=== PATIENT | female | born 1950 | race Caucasian/White ===

== ENCOUNTER → 2016-12-13 | Outpatient (CLI) | payer BC ==
--- NOTE | 2016-12-13 10:55 | BD ---
EXAMINATION TYPE: MG DEXA axial skeleton. DATE OF EXAM: 12/13/2016 COMPARISON: 2014 CLINICAL HISTORY: osteoporosis Height: 5'4 Weight: 201 FRAX RISK QUESTIONS: Alcohol (3 or more units per day): no Family History (Parent hip fracture): yes Glucocorticoids (More than 3mos): no (Ex: prednisone, prednisolone, methylprednisolone, dexamethasone, and hydrocortisone). History of Fracture in Adulthood: no Secondary Osteoporosis: 1. Type 1 Diabetes: no 2. Hyperthyroidism: no 3. Menopause before 45: no 4. Malnutrition: no 5. Chronic liver disease: yes Rheumatoid Arthritis: no Current Tobacco Use: no RISK FACTORS HISTORY OF: Postmenopausal woman: MEDICATIONS: Thyroid Medications: Which medication: Synthroid How Long: < 10 years Additional Medications: liver chronic, calcium, blood pressure, cholesterol Additional History: thyroid radiated 39 years ago, no cancer EXAM MEASUREMENTS: Bone mineral densitometry was performed using the [employer]. Bone mineral density as measured about the Lumbar spine is: ----- L1-L4(G/cm2): 1.092 T Score Values are as follows: ----- L2: -0.8 ----- L3: 0.1 ----- L4: -1.1 ----- L1-L4: -0.7 Bone mineral density has: Increased 0.6 % since study of: 11/19/2014 Bone mineral density about the R hip (g/cm2): 0.689 Bone mineral density about the L hip (g/cm2): 0.694 T Score values are as follows: -----R Neck: -2.5 -----L Neck: -2.5 -----R Total: -2.1 -----L Total: -2.0 Bone mineral density has: Increased 0.9% since study of: 11/19/2014 IMPRESSION: Osteopenia (T Score between -2.5 and -1 as noted by T score values:L4, Charles Hips There is slightly increased risk of fracture and the patient may be considered for treatment. Re-Screen 2-5 years. NOTE: T-SCORE=SD OF THE YOUNG ADULT MEAN.
--- NOTE | 2016-12-14 08:23 | MM ---
Reason for exam: screening (asymptomatic). Last mammogram was performed 1 year and 1 month ago. History: Patient is postmenopausal. Benign excisional biopsy of the left breast, 1997. Took estrogen for 9 years beginning at age 46. Took progesterone for 9 years beginning at age 46. Taking other hormone for 21 years beginning at age 36. Physical Findings: A clinical breast exam by your physician is recommended on an annual basis and results should be correlated with mammographic findings. MG Screening Mammo w CAD Bilateral CC and MLO view(s) were taken. Prior study comparison: November 24, 2015, bilateral MG screening mammo w CAD. November 19, 2014, bilateral MG screening mammo w CAD. There are scattered fibroglandular densities. There is no discrete abnormality. No significant changes when compared with prior studies. ASSESSMENT: Negative, BI-RAD 1 RECOMMENDATION: Routine screening mammogram of both breasts in 1 year.
== END | disposition home or self-care (01) ==
LOC: RADMAMWWP 07:59
PROVIDERS: ATTEND Obstetrics & Gynecology
DX: Z12.31 Encounter for screening mammogram for malignant neoplasm of breast (principal); M85.80 Other specified disorders of bone density and structure, unspecified site
CPT/HCPCS: 77080; G0202

== ENCOUNTER → 2017-04-21 | Outpatient (CLI) | payer MEDICARE, BC ==
--- NOTE | 2017-04-21 09:29 | US ---
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 EXAM MEASUREMENTS: Liver Length: 15.8 cm Gallbladder Wall: Surgically absent cm CBD: 0.3 cm Right Kidney: 9.9x 3.9 x 4.1 cm Pancreas: Obscured by bowel gas Liver: small left nodule 1.5 x 1.7 x 1.3 cm seen before Gallbladder: Surgically absent Evidence for sonographic Mars's sign: Surgically absent CBD: wnl Right Kidney: wnl portal vein and hepatic artery patent and same direction IMPRESSION: 1. Stable hepatic hemangioma.
== END ==
LOC: RADUSWWP 08:10
PROVIDERS: ATTEND Internal Medicine Gastroenterology
DX: D18.09 Hemangioma of other sites (principal)
CPT/HCPCS: 76705

== ENCOUNTER → 2017-06-28 | Outpatient (CLI) | payer MEDICARE, BC ==
--- NOTE | 2017-06-28 09:47 | XR ---
EXAMINATION TYPE: XR chest 2V DATE OF EXAM: 06/28/2017 COMPARISON: 07/23/2013 TECHNIQUE: PA and lateral views submitted. HISTORY: Asthma FINDINGS: The lungs are clear and there is no pneumothorax, pleural effusion, or overt failure. Subsegmental l inear changes at both lung bases. Hypertrophic and degenerative change of the spine. Surgical clip in the abdomen. Hyperinflation suggests asthma or COPD.. IMPRESSION: 1. Basilar subsegmental consolidation. Atelectasis versus early infiltrate..
== END | disposition home or self-care (01) ==
LOC: RADXRMAIN 09:24
PROVIDERS: ATTEND Family Medicine
DX: J18.1 Lobar pneumonia, unspecified organism (principal); J45.909 Unspecified asthma, uncomplicated
CPT/HCPCS: 71046

== ENCOUNTER → 2017-07-25 | Outpatient (CLI) | payer MEDICARE, BC ==
--- NOTE | 2017-07-25 17:03 | CT ---
EXAMINATION TYPE: CT angio chest DATE OF EXAM: 07/25/2017 4:46 PM COMPARISON: NONE HISTORY: Chest and back pain. CT DLP: 365.9 mGycm Automated exposure control for dose reduction was used. CONTRAST: CTA scan of the thorax is performed with IV Contrast, patient injected with 100ml mL of Isovue 370, p ulmonary embolism protocol. There are 3-D post processed images.. FINDINGS: There is mild pulmonary emphysema. The lungs are clear of consolidation. There is no evidence of a pu lmonary mass. There is no pleural effusion. There is no pericardial effusion. There is minimal linear density at the lung bases. There is a small hiatal hernia. I see no filling defects in the pulmonary arteries. There is no evidence of thoracic aortic aneurysm or dissection. There is no mediastinal adenopathy. There are no hilar masses. The bony thorax is inta ct. IMPRESSION: MILD EMPHYSEMA. MILD SCARRING OR SUBSEGMENTAL ATELECTASIS AT THE LUNG BASES. NO EVIDENCE OF PULMONARY EMBOLISM.
== END | disposition home or self-care (01) ==
LOC: RADCTMAIN 15:49
PROVIDERS: ATTEND Internal Medicine
DX: J43.9 Emphysema, unspecified (principal); R07.1 Chest pain on breathing
CPT/HCPCS: 82565; 84520; 71275; 36415; Q9967

== ENCOUNTER 2018-01-19 11:21 | Emergency (ER) | payer MEDICARE, BC ==
[2018-01-19] MEDS ORDERED: HYDROmorphone 1 MG/ML 1 ML SYRINGE IVP STA (12:27)
[2018-01-19] MEDS ORDERED: ONDANSETRON 4 MG/2 ML VIAL IVP STA (12:27)
[2018-01-19] MEDS ORDERED: KETOROLAC 30 MG/ML 1 ML VIAL IVP STA (12:27)
[2018-01-19] MEDS ORDERED: SODIUM CHLORIDE 0.9% 1,000 ML IV ONE (12:27)
[2018-01-19 12:34] LABS: Basophils # (A) 0.1 k/uL (0-0.2); Basophils % (A) 1 %; Eosinophils # (A) 0.2 k/uL (0-0.7); Eosinophils % (A) 2 %; HCT 45.5 % (34.0-46.0); HGB 15.1 gm/dL (11.4-16.0); Lymphocytes # (A) 0.8 k/uL (1.0-4.8); Lymphocytes % (A) 11 %; MCH 29.4 pg (25.0-35.0); MCHC 33.2 g/dL (31.0-37.0); MCV 88.5 fL (80.0-100.0); Mean Platelet Volume 7.7; Monocytes # (A) 0.4 k/uL (0-1.0); Monocytes % (A) 5 %; Neutrophils # (A) 5.7 k/uL (1.3-7.7); Neutrophils % (A) 78 %; Platelet Count 234 k/uL (150-450); RBC 5.14 m/uL (3.80-5.40); RDW 14.1 % (11.5-15.5); WBC 7.3 k/uL (3.8-10.6)
--- NOTE | 2018-01-19 12:36 | ED ---
General Adult HPI - General Chief complaint: Abdominal Pain Stated complaint: Abdominal pin Time Seen by Provider: 01/19/18 12:00 Source: patient, RN notes reviewed Mode of arrival: ambulatory Limitations: no limitations - History of Present Illness Initial comments: This is a 67-year-old female presents emergency Department complaining of left- sided flank pain. Patient states she does have history of kidney stones but has been many years. Patient states today about 2 hours prior to arrival she started having significant left-sided flank pain. Patient became nauseated and vomited twice. Patient states she has not had any diarrhea but she has had multiple bowel movements since this began. Patient denies any palpable tenderness. Patient denies any dysuria hematuria urinary frequency. Patient denies any fever chills. Patient denies any chest pain difficulty breathing or shortness of breath. - Related Data Home Medications Medication Instructions Recorded Confirmed Ascorbic Acid [Vitamin C] 500 mg PO DAILY 12/16/14 01/19/18 Aspirin 81 mg PO DAILY 12/16/14 01/19/18 Atorvastatin [Lipitor] 40 mg PO HS 12/16/14 01/19/18 Calcium Carbonate [Calcium] 600 mg PO DAILY 12/16/14 01/19/18 Cholecalciferol [Vitamin D3] 1,000 unit PO DAILY 12/16/14 01/19/18 Glucosamine/Chondr Lin A Sod [Osteo 1 tab PO DAILY 12/16/14 01/19/18 Bi-Flex Caplet] Levothyroxine Sodium [Synthroid] 175 mcg PO QAM 12/16/14 01/19/18 Ursodiol 300 mg PO TID 12/16/14 01/19/18 Venlafaxine HCl [Venlafaxine HCl 75 mg PO QAM 12/16/14 01/19/18 ER] Verapamil HCl [Verapamil ER] 120 mg PO QAM 12/16/14 01/19/18 Vitamin E 1,000 unit PO DAILY 12/16/14 01/19/18 Cetirizine HCl [Zyrtec] 10 mg PO DAILY 01/19/18 01/19/18 Doxycycline Monohydrate 100 mg PO BID 01/19/18 01/19/18 [Vibramycin] Fluticasone Nasal [place] [Flonase 1 spray EA NOSTRIL DAILY 01/19/18 01/19/18 Nasal [place]] Previous Rx's Medication Instructions Recorded Hydrocodone/Acetaminophen [Wyckoff 1 each PO Q4HR PRN #14 tab 01/19/18 5-325] Ketorolac [Toradol] 10 mg PO Q6HR #15 tab 01/19/18 Allergies Allergy/AdvReac Type Severity Reaction Status Date / Time pseudoephedrine sulfate Allergy Rapid Verified 01/19/18 13:27 [From Claritin-D] Heart Rate Review of Systems ROS Statement: Those systems with pertinent positive or pertinent negative responses have been documented in the HPI. ROS Other: All systems not noted in ROS Statement are negative. Past Medical History Past Medical History: Liver Disease, Thyroid Disorder Additional Past Medical History / Comment(s): FAST HEART RATE? LIVER DISEASE CAUSED BY THYROID? History of Any Multi-Drug Resistant Organisms: None Reported Past Surgical History: Cardiac Ablation, Cholecystectomy, Hysterectomy, Tonsillectomy, Tubal Ligation Additional Past Surgical History / Comment(s): D&C with hysteroscopy Past Anesthesia/Blood Transfusion Reactions: No Reported Reaction Past Psychological History: Anxiety Smoking Status: Former smoker Past Alcohol Use History: None Reported Past Drug Use History: None Reported - Past Family History Father Family Medical History: Hypertension Mother Family Medical History: Hypertension General Exam - General Exam Comments Initial Comments: GENERAL: Patient is well-developed and well-nourished. Patient is nontoxic and well- hydrated and is in moderate distress. ENT: Neck is soft and supple. No significant lymphadenopathy is noted. Oropharynx is clear. Moist mucous membranes. Neck has full range of motion without eliciting any pain. EYES: The sclera were anicteric and conjunctiva were pink and moist. Extraocular movements were intact and pupils were equal round and reactive to light. Eyelids were unremarkable. PULMONARY: Unlabored respirations. Good breath sounds bilaterally. No audible rales rhonchi or wheezing was noted. CARDIOVASCULAR: There is a regular rate and rhythm without any murmurs gallops or rubs. ABDOMEN: Soft and nontender with normal bowel sounds. No palpable organomegaly was noted. There is no palpable pulsatile mass. SKIN: Skin is clear with no lesions or rashes and otherwise unremarkable. NEUROLOGIC: Patient is alert and oriented x3. Cranial nerves II through XII are grossly intact. Motor and sensory are also intact. Normal speech, volume and content. Symmetrical smile. MUSCULOSKELETAL: Normal extremities with adequate strength and full range of motion. No lower extremity swelling or edema. No calf tenderness. LYMPHATICS: No significant lymphadenopathy is noted PSYCHIATRIC: Normal psychiatric evaluation. Limitations: no limitations Course Vital Signs 01/19/18 11:55 Temperature 98.2 F Pulse Rate 71 Respiratory 22 Rate Blood Pressure 145/74 O2 Sat by Pulse 100 Oximetry Medical Decision Making - Medical Decision Making Computed tomography scan shows a 3 mm stone at the distal ureter at the UVJ. Patient has hydronephrosis. I went back in to see the patient after she had received her pain medications she was pain-free at this time. - Lab Data Result diagrams: 01/19/18 12:14 01/19/18 12:14 Lab Results 01/19/18 01/19/18 Range/Units 12:14 12:14 WBC 7.3 (3.8-10.6) k/uL RBC 5.14 (3.80-5.40) m/uL Hgb 15.1 (11.4-16.0) gm/dL Hct 45.5 (34.0-46.0) % MCV 88.5 (80.0-100.0) fL MCH 29.4 (25.0-35.0) pg MCHC 33.2 (31.0-37.0) g/dL RDW 14.1 (11.5-15.5) % Plt Count 234 (150-450) k/uL Neutrophils % 78 % Lymphocytes % 11 % Monocytes % 5 % Eosinophils % 2 % Basophils % 1 % Neutrophils # 5.7 (1.3-7.7) k/uL Lymphocytes # 0.8 L (1.0-4.8) k/uL Monocytes # 0.4 (0-1.0) k/uL Eosinophils # 0.2 (0-0.7) k/uL Basophils # 0.1 (0-0.2) k/uL Sodium 143 (137-145) mmol/L Potassium 4.4 (3.5-5.1) mmol/L Chloride 109 H (98-107) mmol/L Carbon Dioxide 25 (22-30) mmol/L Anion Gap 9 mmol/L BUN 25 H (7-17) mg/dL Creatinine 0.80 (0.52-1.04) mg/dL Est GFR (CKD-EPI)AfAm 90 (>60 ml/min/1.73 sqM) Est GFR (CKD-EPI)NonAf 78 (>60 ml/min/1.73 sqM) Glucose 111 H (74-99) mg/dL Calcium 9.5 (8.4-10.2) mg/dL Total Bilirubin 0.7 (0.2-1.3) mg/dL AST 55 H (14-36) U/L ALT 32 (9-52) U/L Alkaline Phosphatase 132 H (38-126) U/L Total Protein 8.4 H (6.3-8.2) g/dL Albumin 4.0 (3.5-5.0) g/dL Amylase 74 (30-110) U/L Lipase 128 (23-300) U/L Disposition Clinical Impression: Kidney stone Disposition: HOME SELF-CARE Condition: Good Instructions: Kidney Stones (ED) Prescriptions: Hydrocodone/Acetaminophen [Wyckoff 5-325] 1 each PO Q4HR PRN #14 tab PRN Reason: Pain Ketorolac [Toradol] 10 mg PO Q6HR #15 tab Is patient prescribed a controlled substance at d/c from ED?: Yes When asked, does pt state using other controlled substances?: No If prescribed controlled substance>3 days was MAPS reviewed?: Prescribed <3 Days If opioid is for acute pain is fill amount 7 days or less?: Yes If Rx opioid, was Start Talking consent form obtained?: Yes Referrals: Chuck Dominguez MD [Primary Care Provider] - 1-2 days Time of Disposition: 14:09
[2018-01-19 12:50] LABS: Calcium 9.5 mg/dL (8.4-10.2); Potassium 4.4 mmol/L (3.5-5.1); Total Bilirubin 0.7 mg/dL (0.2-1.3); Total Protein 8.4 g/dL (6.3-8.2)
--- NOTE | 2018-01-19 13:23 | CT ---
EXAMINATION TYPE: CT abdomen pelvis wo con DATE OF EXAM: 01/19/2018 COMPARISON: 07/09/2009 HISTORY: Lt flank pain CT DLP: 967 mGycm Examination of the solid and hollow viscera is limited given the lack of contrast. FINDINGS: LUNG BASES: No evidence for nodule. No evidence for infiltrate. LIVER/GB: Micronodular hepatic appearances are compatible with cirrhotic liver disease. Cholecystecto my clips are in place. No space-occupying hepatic lesion. PANCREAS: No pancreatic mass identified. No inflammatory process seen. SPLEEN: No evidence for splenomegaly. No intrasplenic lesions seen. ADRENALS: No adrenal nodules identified. No evidence for thickening. KIDNEYS: 3 mm left UVJ calculus resulting in mild left-sided hydroureteronephrosis. Additional nonobs tructing calculi upper and lower pole right kidney. No renal masses seen with certainty. BOWEL: Small hiatal hernia noted. Appendix has a normal appearance. No evidence of bowel obstruction. No inflammatory process. Lymph nodes: No evidence for adenopathy greater than 1 cm. Abdominal aorta: Atheromatous changes seen. No evidence for aneurysm. Genital organs: No significant abnormality. Other: No significant abnormality. IMPRESSION: 1. 3 mm left UVJ calculus resulting in mild left-sided hydroureteronephrosis. 2. Cirrhotic liver disease.
--- NOTE | 2018-01-19 13:58 | XR ---
EXAMINATION TYPE: XR KUB DATE OF EXAM: 01/19/2018 COMPARISON: NONE HISTORY: Pain TECHNIQUE: One view abdominal series FINDINGS: The osseous structures are intact. The bowel gas pattern is nonspecific. Subsegmental changes at bot h lung bases. The heart is enlarged. Hypertrophic and degenerative change of the spine. Surgical clip s in the right upper quadrant. 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 Retained fecal debris throughout the colon. Nonspecific calcifications in the right hemipelvis appears outside of the ureter on the recent CT scan. IMPRESSION: 1. Calcification seen by CT scan within the left hemipelvis not as well identified by standard x-ray.
[2018-01-19 14:40] VITALS: BP 165/70; PULSE 88; RESP 18; TEMP 97.9
== END 2018-01-19 14:35 | disposition home or self-care (01) ==
LOC: EC 11:21
DX: N13.2 Hydronephrosis with renal and ureteral calculous obstruction (principal); E07.9 Disorder of thyroid, unspecified; F41.9 Anxiety disorder, unspecified; Z90.49 Acquired absence of other specified parts of digestive tract; Z90.710 Acquired absence of both cervix and uterus; Z98.51 Tubal ligation status; Z87.891 Personal history of nicotine dependence; Z79.82 Long term (current) use of aspirin; Z79.51 Long term (current) use of inhaled steroids; Z79.899 Other long term (current) drug therapy; Z88.8 Allergy status to other drugs, medicaments and biological substances
CPT/HCPCS: 36415; 74018; 74176; 80053; 82150; 83690; 85025; 96361; 96374; 96375; 99284

== ENCOUNTER → 2018-01-26 | Outpatient (CLI) | payer MEDICARE, BC ==
--- NOTE | 2018-01-30 09:43 | MM ---
Reason for exam: screening (asymptomatic). Last mammogram was performed 1 year and 1 month ago. History: Patient is postmenopausal. Benign excisional biopsy of the left breast, 1997. Took estrogen for 9 years beginning at age 46. Took progesterone for 9 years beginning at age 46. Taking other hormone for 21 years beginning at age 36. Physical Findings: A clinical breast exam by your physician is recommended on an annual basis and results should be correlated with mammographic findings. MG 3D Screening Mammo W/Cad Bilateral CC and MLO view(s) were taken. Prior study comparison: December 13, 2016, bilateral MG screening mammo w CAD. November 24, 2015, bilateral MG screening mammo w CAD. There are scattered fibroglandular densities. No significant changes when compared with prior studies. ASSESSMENT: Benign, BI-RAD 2 RECOMMENDATION: Routine screening mammogram of both breasts in 1 year.
== END | disposition home or self-care (01) ==
LOC: RADMAMWWP 12:16
PROVIDERS: ATTEND Family Medicine
DX: Z12.31 Encounter for screening mammogram for malignant neoplasm of breast (principal)
CPT/HCPCS: 77063; 77067

== ENCOUNTER → 2018-04-12 | Outpatient (CLI) | payer MEDICARE, BC ==
--- NOTE | 2018-04-12 11:54 | US ---
EXAMINATION TYPE: US liver DATE OF EXAM: 04/12/2018 COMPARISON: 04/21/2017 CLINICAL HISTORY: Primary biliary cirrhosis K74.3. Cirrhosis EXAM MEASUREMENTS: Liver Length: 16.8 cm. Normal less than 15.5 cm. Gallbladder Wall: Surgically absent CBD: 0.5 cm Right Kidney: 10.4 x 5.8 x 4.1 cm Pancreas: Tail obscured by overlying bowel gas Liver: heterogeneous . Previous hypoechoic lesion not identified on the current examination. Gallbladder: Surgically absent Evidence for sonographic Mars's sign: no CBD: wnl Right Kidney: No evidence of hydronephrosis IMPRESSION: 1. No suspicious interval change. Mild hepatomegaly is present at 16.8 cm.
== END | disposition home or self-care (01) ==
LOC: RADUSWWP 08:42
PROVIDERS: ATTEND Internal Medicine Gastroenterology
DX: R16.0 Hepatomegaly, not elsewhere classified (principal)
CPT/HCPCS: 76705

== ENCOUNTER 2018-05-06 19:35 | Emergency (ER) | payer MEDICARE, BC ==
[2018-05-06 19:44] VITALS: RESP 18
[2018-05-06] MEDS ORDERED: MORPHINE SULFATE 2 MG/ML SYRINGE IVP STA (20:31)
[2018-05-06] MEDS ORDERED: SODIUM CHLORIDE 0.9% 1,000 ML IV STA (20:31)
[2018-05-06] MEDS ORDERED: ONDANSETRON 4 MG/2 ML VIAL IVP STA (20:31)
[2018-05-06] MEDS ORDERED: KETOROLAC 30 MG/ML 1 ML VIAL IVP STA (20:31)
--- NOTE | 2018-05-06 20:45 | ED ---
Abdominal Pain HPI - General Source: patient, family Mode of arrival: ambulatory Limitations: no limitations <Karen Wharton - Last Filed: 05/07/18 02:34> <Jammie Sullivan - Last Filed: 05/09/18 09:11> - General Chief Complaint: Abdominal Pain Stated Complaint: Flank pain Time Seen by Provider: 05/06/18 20:10 - History of Present Illness Initial Comments: 68 year-old female patient presents to the emergency department today for evaluation of right flank pain that radiates into the right upper quadrant abdomen. Patient states pain has been present for the last 3 days. States that she has had history of kidney stones in the pain kind of feels similar. States that she did have some leftover medication including Penfield and Toradol which she has been taking but the pain returned to soon as the medication wears off. States that she has had some burning with urination, increased frequency, but voiding small amounts over the last 3 days as well. She is also reporting hematuria. States that she has been nauseated but has not had any vomiting. Denies any chest pain or shortness of breath. Patient denies any recent rash, diarrhea, constipation, back pain, numbness, tingling, dizziness, weakness, headache, visual changes, or any other complaints. (Karen Wharton) - Related Data Home Medications Medication Instructions Recorded Confirmed Ascorbic Acid [Vitamin C] 500 mg PO DAILY 12/16/14 05/06/18 Aspirin 81 mg PO DAILY 12/16/14 05/06/18 Atorvastatin [Lipitor] 40 mg PO HS 12/16/14 05/06/18 Calcium Carbonate [Calcium] 600 mg PO DAILY 12/16/14 05/06/18 Cholecalciferol [Vitamin D3] 1,000 unit PO DAILY 12/16/14 05/06/18 Glucosamine/Chondr Lin A Sod [Osteo 1 tab PO DAILY 12/16/14 05/06/18 Bi-Flex Caplet] Levothyroxine Sodium [Synthroid] 175 mcg PO QAM 12/16/14 05/06/18 Ursodiol 300 mg PO TID 12/16/14 05/06/18 Venlafaxine HCl [Venlafaxine HCl 75 mg PO QAM 12/16/14 05/06/18 ER] Verapamil HCl [Verapamil ER] 120 mg PO QAM 12/16/14 05/06/18 Vitamin E 1,000 unit PO DAILY 12/16/14 05/06/18 Cetirizine HCl [Zyrtec] 10 mg PO DAILY 01/19/18 05/06/18 Doxycycline [Vibramycin] 100 mg PO BID 01/19/18 05/06/18 Fluticasone Nasal [place] [Flonase 1 spray EA NOSTRIL DAILY 01/19/18 05/06/18 Nasal [place]] Previous Rx's Medication Instructions Recorded Hydrocodone/Acetaminophen [Penfield 1 each PO Q4HR PRN #14 tab 01/19/18 5-325] Ketorolac [Toradol] 10 mg PO Q6HR #15 tab 01/19/18 Tamsulosin HCl [Flomax] 0.4 mg PO DAILY #7 cap 05/06/18 Allergies Allergy/AdvReac Type Severity Reaction Status Date / Time pseudoephedrine sulfate Allergy Rapid Verified 01/19/18 13:27 [From Claritin-D] Heart Rate Review of Systems ROS Other: All systems not noted in ROS Statement are negative. <Karen Wharton - Last Filed: 05/07/18 02:34> ROS Other: All systems not noted in ROS Statement are negative. <Jammie Sullivan - Last Filed: 05/09/18 09:11> ROS Statement: Those systems with pertinent positive or pertinent negative responses have been documented in the HPI. Past Medical History Past Medical History: Liver Disease, Thyroid Disorder Additional Past Medical History / Comment(s): FAST HEART RATE? LIVER DISEASE CAUSED BY THYROID? History of Any Multi-Drug Resistant Organisms: None Reported Past Surgical History: Cardiac Ablation, Cholecystectomy, Hysterectomy, Tonsillectomy, Tubal Ligation Additional Past Surgical History / Comment(s): D&C with hysteroscopy Past Anesthesia/Blood Transfusion Reactions: No Reported Reaction Past Psychological History: Anxiety Smoking Status: Former smoker Past Alcohol Use History: None Reported Past Drug Use History: None Reported - Past Family History Father Family Medical History: Hypertension Mother Family Medical History: Hypertension <Karen Wharton - Last Filed: 05/07/18 02:34> General Exam Limitations: no limitations General appearance: alert, in no apparent distress, other (Social well-developed , well-nourished adult female patient in no acute distress. Vital signs upon presentation are temperature 98.2F, pulse 80, respirations 18, blood pressure 170/85, pulse ox 96% on room air.) Eye exam: Present: normal appearance, PERRL, EOMI. Absent: scleral icterus, conjunctival injection, periorbital swelling ENT exam: Present: normal exam, normal oropharynx, mucous membranes moist Respiratory exam: Present: normal lung sounds bilaterally. Absent: respiratory distress, wheezes, rales, rhonchi, stridor Cardiovascular Exam: Present: regular rate, normal rhythm, normal heart sounds. Absent: systolic murmur, diastolic murmur, rubs, gallop, clicks GI/Abdominal exam: Present: soft, tenderness (Midepigastric and right upper quadrant tenderness), normal bowel sounds. Absent: distended, guarding, rebound , rigid Back exam: Present: normal inspection, CVA tenderness (R). Absent: CVA tenderness (L) Neurological exam: Present: alert, oriented X3, CN II-XII intact Psychiatric exam: Present: normal affect, normal mood Skin exam: Present: warm, dry, intact, normal color. Absent: rash <Karen Wharton M - Last Filed: 05/07/18 02:34> Vital Signs 05/06/18 05/06/18 19:40 22:22 Temperature 98.2 F 98.0 F Pulse Rate 80 69 Respiratory 18 18 Rate Blood Pressure 170/85 145/85 O2 Sat by Pulse 96 96 Oximetry Medical Decision Making - Lab Data Result diagrams: 05/06/18 20:40 05/06/18 20:40 - Radiology Data Radiology results: report reviewed, image reviewed <Karen Wharton - Last Filed: 05/07/18 02:34> - Lab Data Result diagrams: 05/06/18 20:40 05/06/18 20:40 <Jammie Sullivan - Last Filed: 05/09/18 09:11> - Medical Decision Making 68 year-old female patient presents to the emergency department today for evaluation of right flank pain. Patient does have history of kidney stones. Physical examination did reveal right CVA tenderness. Labs reviewed and did reveal elevated BUN at 30 with normal creatinine. Urinalysis showed a cloudy appearance with trace blood, 16 red blood cells, and rare mucous. No evidence of infection. Patient symptoms are consistent with kidney stone. Given a positive CT scanning in December for kidney stone we will not repeat this. She 'll be discharged home at this time with Flomax prescription. She does have Penfield and Toradol at home for pain control. She is instructed to increase fluids. She is instructed to follow-up with urologist for further evaluation. Return parameters were discussed in detail. She verbalizes understanding and agrees this plan. (Karen Wharton) I was available for consultation in the emergency department. The history and physical exam were done by the midlevel provider. I was consulted for this patient's care. I reviewed the case with the midlevel provider and based on their presentation of the patient, I agree with the assessment, medical decision making and plan of care as documented. (Jammie Sullivan) - Lab Data Lab Results 05/06/18 05/06/18 05/06/18 Range/Units 20:40 20:40 20:40 WBC 6.2 (3.8-10.6) k/uL RBC 4.84 (3.80-5.40) m/uL Hgb 14.2 (11.4-16.0) gm/dL Hct 43.0 (34.0-46.0) % MCV 88.8 (80.0-100.0) fL MCH 29.4 (25.0-35.0) pg MCHC 33.1 (31.0-37.0) g/dL RDW 13.4 (11.5-15.5) % Plt Count 232 (150-450) k/uL Neutrophils % 58 % Lymphocytes % 27 % Monocytes % 7 % Eosinophils % 5 % Basophils % 1 % Neutrophils # 3.6 (1.3-7.7) k/uL Lymphocytes # 1.7 (1.0-4.8) k/uL Monocytes # 0.4 (0-1.0) k/uL Eosinophils # 0.3 (0-0.7) k/uL Basophils # 0.1 (0-0.2) k/uL Sodium 141 (137-145) mmol/L Potassium 4.3 (3.5-5.1) mmol/L Chloride 109 H (98-107) mmol/L Carbon Dioxide 23 (22-30) mmol/L Anion Gap 9 mmol/L BUN 30 H (7-17) mg/dL Creatinine 0.73 (0.52-1.04) mg/dL Est GFR (CKD-EPI)AfAm >90 (>60 ml/min/1.73 sqM) Est GFR (CKD-EPI)NonAf 86 (>60 ml/min/1.73 sqM) Glucose 91 (74-99) mg/dL Calcium 10.1 (8.4-10.2) mg/dL Total Bilirubin 0.9 (0.2-1.3) mg/dL AST 56 H (14-36) U/L ALT 38 (9-52) U/L Alkaline Phosphatase 135 H (38-126) U/L Troponin I <0.012 (0.000-0.034) ng/mL Total Protein 8.4 H (6.3-8.2) g/dL Albumin 4.2 (3.5-5.0) g/dL Amylase 66 (30-110) U/L Lipase 103 (23-300) U/L Urine Color Urine Appearance (Clear) Urine pH (5.0-8.0) Ur Specific [place] (1.001-1.035) Urine Protein (Negative) Urine Glucose (UA) (Negative) Urine Ketones (Negative) Urine Blood (Negative) Urine Nitrite (Negative) Urine Bilirubin (Negative) Urine Urobilinogen (<2.0) mg/dL Ur Leukocyte Esterase (Negative) Urine RBC (0-5) /hpf Urine WBC (0-5) /hpf Urine Mucus (None) /hpf 05/06/18 Range/Units 20:40 WBC (3.8-10.6) k/uL RBC (3.80-5.40) m/uL Hgb (11.4-16.0) gm/dL Hct (34.0-46.0) % MCV (80.0-100.0) fL MCH (25.0-35.0) pg MCHC (31.0-37.0) g/dL RDW (11.5-15.5) % Plt Count (150-450) k/uL Neutrophils % % Lymphocytes % % Monocytes % % Eosinophils % % Basophils % % Neutrophils # (1.3-7.7) k/uL Lymphocytes # (1.0-4.8) k/uL Monocytes # (0-1.0) k/uL Eosinophils # (0-0.7) k/uL Basophils # (0-0.2) k/uL Sodium (137-145) mmol/L Potassium (3.5-5.1) mmol/L Chloride (98-107) mmol/L Carbon Dioxide (22-30) mmol/L Anion Gap mmol/L BUN (7-17) mg/dL Creatinine (0.52-1.04) mg/dL Est GFR (CKD-EPI)AfAm (>60 ml/min/1.73 sqM) Est GFR (CKD-EPI)NonAf (>60 ml/min/1.73 sqM) Glucose (74-99) mg/dL Calcium (8.4-10.2) mg/dL Total Bilirubin (0.2-1.3) mg/dL AST (14-36) U/L ALT (9-52) U/L Alkaline Phosphatase (38-126) U/L Troponin I (0.000-0.034) ng/mL Total Protein (6.3-8.2) g/dL Albumin (3.5-5.0) g/dL Amylase (30-110) U/L Lipase (23-300) U/L Urine Color Yellow Urine Appearance Cloudy H (Clear) Urine pH 5.5 (5.0-8.0) Ur Specific [place] 1.019 (1.001-1.035) Urine Protein Negative (Negative) Urine Glucose (UA) Negative (Negative) Urine Ketones Negative (Negative) Urine Blood Trace H (Negative) Urine Nitrite Negative (Negative) Urine Bilirubin Negative (Negative) Urine Urobilinogen <2.0 (<2.0) mg/dL Ur Leukocyte Esterase Negative (Negative) Urine RBC 16 H (0-5) /hpf Urine WBC 2 (0-5) /hpf Urine Mucus Rare H (None) /hpf - Radiology Data 2 views of the abdomen are obtained. Report was reviewed in its entirety. Impression by Dr. Reyna shows no sign of intestinal obstruction or pneumoperitoneum. Fecal pattern is normal. There are clips from cholecystectomy. There is mild atelectasis at the right lung bases. No pathologic calcifications over the kidneys. Impression by Dr. Reyna shows nonacute abdomen. Atelectasis at the right lung bases compared to old exam ( Karen Wharton) Disposition Is patient prescribed a controlled substance at d/c from ED?: No Time of Disposition: :07 <Karen Wharton M - Last Filed: 05/07/18 02:34> <Jammie Sullivan P - Last Filed: 05/09/18 09:11> Clinical Impression: Kidney stone on right side Disposition: HOME SELF-CARE Condition: Good Instructions: Kidney Stones (ED) Additional Instructions: Increase fluids. Take medications as directed. Follow-up with the primary care physician for recheck in 1-2 days. Follow up with urology for recheck as soon as possible. Return immediately for any new, worsening, or concerning symptoms Prescriptions: Tamsulosin HCl [Flomax] 0.4 mg PO DAILY #7 cap Referrals: Chuck Dominguez MD [Primary Care Provider] - 1-2 days Mark Aranda MD [STAFF PHYSICIAN] - 1-2 days
[2018-05-06 20:58] LABS: Basophils # (A) 0.1 k/uL (0-0.2); Basophils % (A) 1 %; Eosinophils # (A) 0.3 k/uL (0-0.7); Eosinophils % (A) 5 %; HGB 14.2 gm/dL (11.4-16.0); Lymphocytes # (A) 1.7 k/uL (1.0-4.8); Lymphocytes % (A) 27 %; MCH 29.4 pg (25.0-35.0); MCHC 33.1 g/dL (31.0-37.0); MCV 88.8 fL (80.0-100.0); Monocytes # (A) 0.4 k/uL (0-1.0); Monocytes % (A) 7 %; Neutrophils # (A) 3.6 k/uL (1.3-7.7); Neutrophils % (A) 58 %; Platelet Count 232 k/uL (150-450); RBC 4.84 m/uL (3.80-5.40); RDW 13.4 % (11.5-15.5); WBC 6.2 k/uL (3.8-10.6)
[2018-05-06 21:04] LABS: Appearance,Urine Cloudy (Clear); Bilirubin,Urine Negative (Negative); Blood,Urine Trace (Negative); Color,Urine Yellow; Glucose,Urine (UA) Negative (Negative); Ketones,Urine Negative (Negative); Leukocyte Esterase,Urine Negative (Negative); Mucus,Urine Rare /hpf; Nitrite,Urine Negative (Negative); PH, Urine 5.5 (5.0-8.0); Protein,Urine Negative (Negative); RBC,Urine 16 /hpf (0-5); Specific Gravity,Urine 1.019 (1.001-1.035); Urobilinogen,Urine <2.0 mg/dL (<2.0); WBC,Urine 2 /hpf (0-5)
[2018-05-06 21:06] LABS: ALT 38 U/L (9-52); AST 56 U/L (14-36); Albumin 4.2 g/dL (3.5-5.0); Alkaline Phosphatase 135 U/L (38-126); Amylase 66 U/L (30-110); Anion Gap 9 mmol/L; Blood Urea Nitrogen 30 mg/dL (7-17); Calcium 10.1 mg/dL (8.4-10.2); Carbon Dioxide 23 mmol/L (22-30); Chloride 109 mmol/L (98-107); Glucose 91 mg/dL (74-99); Lipase 103 U/L (23-300); Potassium 4.3 mmol/L (3.5-5.1); Sodium 141 mmol/L (137-145); Total Bilirubin 0.9 mg/dL (0.2-1.3); Total Protein 8.4 g/dL (6.3-8.2)
[2018-05-06] MEDS ORDERED: TAMSULOSIN 0.4 MG CAP.ER.24H PO STA (21:44)
--- NOTE | 2018-05-06 22:01 | XR ---
EXAMINATION TYPE: XR KUB DATE OF EXAM: 05/06/2018 COMPARISON: 01/19/2018 HISTORY: Flank pain TECHNIQUE: 2 views upright. There is no sign of intestinal obstruction or pneumoperitoneum. Fecal pattern is normal. There are cl ips from cholecystectomy. There is mild atelectasis at the right lung base. There are no pathologic c alcifications over the kidneys. : IMPRESSION: Nonacute abdomen. Atelectasis at the right lung base compared to old exam.
[2018-05-06 22:23] VITALS: BP 145/85; PULSE 69; TEMP 98
== END 2018-05-06 22:22 | disposition home or self-care (01) ==
LOC: EC 19:35
DX: N20.0 Calculus of kidney (principal); E07.9 Disorder of thyroid, unspecified; F41.9 Anxiety disorder, unspecified; Z90.49 Acquired absence of other specified parts of digestive tract; Z90.710 Acquired absence of both cervix and uterus; Z98.51 Tubal ligation status; Z87.891 Personal history of nicotine dependence; Z87.442 Personal history of urinary calculi; Z79.82 Long term (current) use of aspirin; Z79.899 Other long term (current) drug therapy; Z88.8 Allergy status to other drugs, medicaments and biological substances
CPT/HCPCS: 36415; 80053; 82150; 83690; 84484; 85025; 81001; 74018; 99284; 96374; 96375 ×2; 96361 ×2; J2405; J1885; J2270

== ENCOUNTER → 2018-05-12 | Outpatient (CLI) | payer MEDICARE, BC ==
--- NOTE | 2018-05-12 14:24 | XR ---
Abdomen HISTORY: History of kidney stones Frontal view of the abdomen on 2 images correlated to prior exam dated 05/06/2018, CT 01/19/2018 Calcification overlying the lower pole the right kidney measures 18 mm. Probable phleboliths in the p maggi. 1.5 cm splenic artery aneurysm left upper quadrant again noted with calcification. Retained fe homero debris present throughout the distribution of the colon. Overlying bowel gas may obscure detail. Partial sacralization of L5 on the right again noted. IMPRESSION: Right-sided nephrolithiasis. Indeterminate calcifications in the pelvis may be vascular.
== END | disposition home or self-care (01) ==
LOC: RADXRMAIN 11:24
PROVIDERS: ATTEND Urology
DX: N20.0 Calculus of kidney (principal)
CPT/HCPCS: 74018

== ENCOUNTER → 2019-01-29 | Outpatient (CLI) | payer MEDICARE, BC ==
--- NOTE | 2019-01-29 13:23 | BD ---
EXAMINATION TYPE: Axial Bone Density DATE OF EXAM: 01/29/2019 COMPARISON: 2017 CLINICAL HISTORY: M [age] Height: 5 FT 3 1/2 IN Weight: 204 FRAX RISK QUESTIONS: Family History (Parent hip fracture): YES Secondary Osteoporosis: 5. Chronic liver disease: STAGE 4 NOT SURE IF IT IS CANCER RISK FACTORS HISTORY OF: Family History of Osteoporosis: Active: Postmenopausal woman: LATE 5O 'S Take estrogen and/or progesterone medications: NONE NOW TOOK HRT FROM 46 -55 MEDICATIONS: Prednisone or other steroids: INHALER FOR COPD NOT SURE IF IT IS A STEROID How Long: APPROX 4 YEARS Thyroid Medications: YES Which medication: SYNTHROID How Lon PLUS YEARS Additional Medications: URSODIOL, VERAPAMIL, ATORVASTATIN, SYNTHROID, EFFEXOR, ALENDRONATE FOR BONES FOR LAST SIX MONTHS Additional History: RADIATION TO THYROID EXAM MEASUREMENTS: Bone mineral densitometry was performed using the [employer] System. Bone mineral density as measured about the Lumbar spine is: ----- L1-L4(G/cm2): 1.181 T Score Values are as follows: ----- L2: 0.7 ----- L3: 0.6 ----- L4: -0.1 ----- L1-L4: 0.0 Bone mineral density has: INCREASED 10.4 % since study of: 2017 Bone mineral density about the R hip (g/cm2): 0.701 Bone mineral density about the L hip (g/cm2): 0.689 T Score values are as follows: -----R Neck: -2.4 -----L Neck: -2.5 -----R Total: -2.0 -----L Total: -2.2 Bone mineral density has: DECREASED -0.9 % since study of: 2017 IMPRESSION: Osteoporosis (T Score less than -2.5). There is increased fracture risk and therapy is usually indicated based on age. Re-Screen 1-2 years. NOTE: T-SCORE=SD OF THE YOUNG ADULT MEAN.
--- NOTE | 2019-01-30 09:14 | MM ---
Reason for exam: screening (asymptomatic). Last mammogram was performed 1 year ago. History: Patient is postmenopausal. Benign excisional biopsy of the left breast, 1997. Took estrogen for 9 years beginning at age 46. Took progesterone for 9 years beginning at age 46. Taking other hormone for 21 years beginning at age 36. Physical Findings: A clinical breast exam by your physician is recommended on an annual basis and results should be correlated with mammographic findings. MG Screening Mammo w CAD Bilateral CC and MLO view(s) were taken. Prior study comparison: January 26, 2018, bilateral MG 3d screening mammo w/cad. December 13, 2016, bilateral MG screening mammo w CAD. There are scattered fibroglandular densities. There is no discrete abnormality. No significant changes when compared with prior studies. ASSESSMENT: Negative, BI-RAD 1 RECOMMENDATION: Routine screening mammogram of both breasts in 1 year.
== END | disposition home or self-care (01) ==
LOC: RADMAMWWP 08:46
PROVIDERS: ATTEND Obstetrics & Gynecology
DX: Z12.31 Encounter for screening mammogram for malignant neoplasm of breast (principal); M81.0 Age-related osteoporosis without current pathological fracture
CPT/HCPCS: 77067; 77080

== ENCOUNTER → 2019-06-14 | Outpatient (CLI) | payer MEDICARE, BC ==
--- NOTE | 2019-06-14 08:59 | US ---
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 Biliary cirrhosis. EXAM MEASUREMENTS: Liver Length: 17.4 cm Gallbladder Wall: Surgically absent cm CBD: .6 cm Right Kidney: 8.9 x 4.3 x 5.5 cm Pancreas: Tail obscured by overlying bowel gas Liver: Very mildly coarsened hepatic echotexture. This limits evaluation for hepatic masses. No foca l mass is seen on today's exam. Gallbladder: Surgically absent Evidence for sonographic Mars's sign: No CBD: wnl Right Kidney: wnl IMPRESSION: The liver demonstrates a very mildly coarsened echotexture relating to underlying hepatoc ellular disease. No focal mass is seen on today's exam.
== END | disposition home or self-care (01) ==
LOC: RADUSWWP 06:48
PROVIDERS: ATTEND Internal Medicine Gastroenterology
DX: K76.89 Other specified diseases of liver (principal)
CPT/HCPCS: 76705

== ENCOUNTER → 2020-03-07 | Outpatient (CLI) | payer MEDICARE, BC ==
--- NOTE | 2020-03-10 12:00 | MM ---
Reason for exam: screening (asymptomatic). Last mammogram was performed 1 year and 1 month ago. History: Patient is postmenopausal. Benign excisional biopsy of the left breast, 1997. Took estrogen for 9 years beginning at age 46. Took progesterone for 9 years beginning at age 46. Taking other hormone for 21 years beginning at age 36. Physical Findings: A clinical breast exam by your physician is recommended on an annual basis and results should be correlated with mammographic findings. MG 3D Screening Mammo W/Cad Bilateral CC and MLO view(s) were taken. Prior study comparison: January 29, 2019, bilateral MG screening mammo w CAD. January 26, 2018, bilateral MG 3d screening mammo w/cad. There are scattered fibroglandular densities. There is no discrete abnormality. ASSESSMENT: Benign, BI-RAD 2 RECOMMENDATION: Routine screening mammogram of both breasts in 1 year.
== END | disposition home or self-care (01) ==
LOC: RADMAMWWP 14:40
PROVIDERS: ATTEND Family Medicine
DX: Z12.31 Encounter for screening mammogram for malignant neoplasm of breast (principal)
CPT/HCPCS: 77063; 77067

== ENCOUNTER → 2021-02-02 | Outpatient (CLI) | payer MEDICARE, BC ==
--- NOTE | 2021-02-02 19:23 | BD ---
EXAMINATION TYPE: Axial Bone Density DATE OF EXAM: 02/02/2021 COMPARISON: 01/29/2019 CLINICAL HISTORY: Postmenopausal screening Height: 62.7 IN Weight: 200 LBS FRAX RISK QUESTIONS: Secondary Osteoporosis: 3. Menopause before 45: TOTAL HYST AGE 52 4. Malnutrition: 5. Chronic liver disease: PT STATES SHE HAS 4TH STAGE LIVER DISEASE RISK FACTORS HISTORY OF: Active: YES Diet low in dairy products/other sources of calcium: YES Postmenopausal woman: TOTAL HYST AGE 52 MEDICATIONS: Thyroid Medications: LEVOTHYROXINE Which medication: Levothyroxine How Lon+ YEARS Osteoporosis Medications: NOT NOW Which medication: Fosamax How Lon YEAR Additional Medications: URSODIOL, VERAPAMIL, ATORVASTATIN, SYNTHROID, VIT D, CALCIUM, VIT C, VIT E, B DUNG, OSTEO BI FLEX, EXAM MEASUREMENTS: Bone mineral densitometry was performed using the [employer] System. Bone mineral density as measured about the Lumbar spine is: ----- L1-L4(G/cm2): 1.205 T Score Values are as follows: ----- L2: -0.1 ----- L3: 0.8 ----- L4: 0.2 ----- L1-L4: 0.2 Bone mineral density has: Decreased -0.9% since study of: 01/29/2019 Bone mineral density about the R hip (g/cm2): 0.691 Bone mineral density about the L hip (g/cm2): 0.671 T Score values are as follows: -----R Neck: -2.5 -----L Neck: -2.6 -----R Total: -1.9 -----L Total: -2.1 Bone mineral density has: Increased 1.7% since study of: 01/29/2019 IMPRESSION: Osteoporosis (T Score less than -2.5). There is increased fracture risk and therapy is usually indicated based on age. Re-Screen 1-2 years. NOTE: T-SCORE=SD OF THE YOUNG ADULT MEAN.
== END | disposition home or self-care (01) ==
LOC: RADBDWWP 14:53
PROVIDERS: ATTEND Obstetrics & Gynecology
DX: Z13.820 Encounter for screening for osteoporosis (principal); M81.0 Age-related osteoporosis without current pathological fracture; Z78.0 Asymptomatic menopausal state
CPT/HCPCS: 77080

== ENCOUNTER → 2021-04-01 | Outpatient (CLI) | payer MEDICARE, BC ==
--- NOTE | 2021-04-01 09:49 | US ---
EXAMINATION TYPE: US liver DATE OF EXAM: 04/01/2021 COMPARISON: NONE CLINICAL HISTORY: K74.3 PRIMARY BILLIARY CIRRHOSIS. EXAM MEASUREMENTS: Liver Length: 15.1 cm Gallbladder Wall: Surgically absent cm CBD: 0.4 cm Right Kidney: 10.0 x 5.4 x 4.2 cm Pancreas: Visualized portions normal. Tail obscured by overlying bowel gas Liver: Increased attenuation, decreased visualization of vessels suggestive of fatty infiltrate Gallbladder: Surgically absent Evidence for sonographic Mars's sign: No CBD: wnl Right Kidney: No hydronephrosis anechoic area seen inferior 1.2 x 1.1 x 1.0 cm IMPRESSION: 1. Simple appearing inferior pole right renal cyst.
== END | disposition home or self-care (01) ==
LOC: RADUSWWP 08:36
PROVIDERS: ATTEND Internal Medicine Gastroenterology
DX: N28.1 Cyst of kidney, acquired (principal); Z90.49 Acquired absence of other specified parts of digestive tract
CPT/HCPCS: 76705

== ENCOUNTER → 2021-04-15 | Outpatient (CLI) | payer MEDICARE, BC ==
--- NOTE | 2021-04-17 11:26 | MM ---
Reason for exam: screening (asymptomatic). Last mammogram was performed 1 year and 1 month ago. History: Patient is postmenopausal. Benign excisional biopsy of the left breast, 1997. Took estrogen for 9 years beginning at age 46. Took progesterone for 9 years beginning at age 46. Taking other hormone for 21 years beginning at age 36. Physical Findings: A clinical breast exam by your physician is recommended on an annual basis and results should be correlated with mammographic findings. MG 3D Screening Mammo W/Cad Bilateral CC and MLO view(s) were taken. Prior study comparison: March 07, 2020, bilateral MG 3d screening mammo w/cad. January 29, 2019, bilateral MG screening mammo w CAD. There are scattered fibroglandular densities. No significant changes when compared with prior studies. ASSESSMENT: Benign, BI-RAD 2 RECOMMENDATION: Routine screening mammogram of both breasts in 1 year.
== END | disposition home or self-care (01) ==
LOC: RADMAMWWP 11:19
PROVIDERS: ATTEND Obstetrics & Gynecology
DX: Z12.31 Encounter for screening mammogram for malignant neoplasm of breast (principal); Z78.0 Asymptomatic menopausal state
CPT/HCPCS: 77063; 77067

== ENCOUNTER → 2022-08-19 | Outpatient (CLI) | payer MEDICARE, BC ==
--- NOTE | 2022-08-19 09:03 | US ---
EXAMINATION TYPE: US liver DATE OF EXAM: 08/19/2022 COMPARISON: US 2020 CLINICAL INDICATION: Female, 72 years old with history of K74.3 PRIMARY BILIARY CIRRHOSIS; TECHNIQUE: Multiple sonographic images of the right upper quadrant are obtained. FINDINGS: EXAM MEASUREMENTS: Liver Length: 16.2 cm CBD: 0.5 cm Right Kidney: 10.4 x 4.2 x 4.6 cm Pancreas: visualized portions wnl, limited by overlying midline bowel gas Liver: attenuating, heterogeneous, decreased visualization of vessels Gallbladder: surgically absent CBD: visualized portions wnl, limited by overlying bowel gas Right Kidney: 1.3cm hypoechoic area inferior pole Limited evaluation the pancreas due to overlying bowel gas. The visualized portions within normal veliz its. Heterogenous coarsened hyperechoic appearance of the liver. This limits evaluation for intrahepa tic masses. No focal masses identified. Gallbladder surgically absent. Visualized portions of the com mon bile duct are within normal limits. There is an anechoic cyst identified within the inferior pole of the right kidney. IMPRESSION: Redemonstration of mildly coarsened hyperechoic echotexture related to underlying hepatocellular dise ase. No focal intrahepatic mass is identified.
== END | disposition home or self-care (01) ==
LOC: RADUSWWP 08:06
PROVIDERS: ATTEND Internal Medicine Gastroenterology
DX: K74.3 Primary biliary cirrhosis (principal); K76.89 Other specified diseases of liver
CPT/HCPCS: 76705

== ENCOUNTER → 2023-08-01 | Outpatient (CLI) | payer MEDICARE, BC ==
--- NOTE | 2023-08-01 23:52 | US ---
EXAMINATION TYPE: US liver DATE OF EXAM: 08/01/2023 COMPARISON: US 08/19/2022 CLINICAL INDICATION: Female, 73 years old with history of K74.3 PRIMARY BILIARY CIRRHOSIS; Biliary ci rrhosis, primary biliary cirrhosis. Hx cholecystectomy. TECHNIQUE: Multiple sonographic images of the right upper quadrant are obtained. FINDINGS: EXAM MEASUREMENTS: Liver Length: 15.0 cm Gallbladder Wall: Surgically absent CBD: 0.5 cm Right Kidney: 10.4 x 5.8 x 4.8 cm [employer] DIRECTOR NOTES: Limited due to gas. Pancreas: Tail was not well seen. Liver: Appears heterogeneous, increased attenuation. Coarse in echotexture. Gallbladder: Surgically absent Evidence for sonographic Mars's sign: No CBD: Appears wnl Right Kidney: Anechoic area seen lower pole: 2.2 x 2.2 x 1.6 cm. May be a renal cyst IMPRESSION: 1. Mild fatty infiltration of liver no hepatomegaly is evident
== END | disposition home or self-care (01) ==
LOC: RADUSWWP 08:05
PROVIDERS: ATTEND Internal Medicine Gastroenterology
DX: K76.0 Fatty (change of) liver, not elsewhere classified (principal); K74.3 Primary biliary cirrhosis
CPT/HCPCS: 76705

== ENCOUNTER → 2024-08-01 | Outpatient (CLI) | payer MEDICARE, BC ==
--- NOTE | 2024-08-01 08:10 | US ---
EXAMINATION TYPE: US liver DATE OF EXAM: 08/01/2024 COMPARISON: US(08/01/2023) CLINICAL INDICATION: Female, 74 years old with history of K74.3 PRIMARY BILIARY CIRRHOSIS; TECHNIQUE: Grayscale and color Doppler imaging of the right upper quadrant. FINDINGS: EXAM MEASUREMENTS: Liver Length: 16.9 cm Gallbladder: Surgically absent CBD: 0.6 cm, color Doppler imaging was utilized to isolate the common bile duct for measurement. Right Kidney: 10.2x6.8x6.1 cm DRY FOLDER CLOTH NOTES: limited exam due to pt body habitus & overlying bowel Pancreas: Tail obscured by overlying bowel gas Liver: Heterogeneous, course echotexture, nodular Gallbladder: Surgically absent Evidence for sonographic Mars's sign: No CBD: wnl Right Kidney: Benign cyst at the lower pole. No hydronephrosis. Cyst measures 1.2x1.4x1.5cm IMPRESSION: Cirrhotic morphology of the liver. No sonographic findings of hepatoma. [facility], , 08/01/2024 8:08 AM
== END | disposition home or self-care (01) ==
LOC: RADUSWWP 07:08
PROVIDERS: ATTEND Internal Medicine Gastroenterology
DX: K74.3 Primary biliary cirrhosis (principal)
CPT/HCPCS: 76705

== ENCOUNTER 2024-10-19 08:35 | Day surgery (SDC) | payer MEDICARE, BC ==
[2024-10-19 09:03] VITALS: TEMP 97.2
[2024-10-19] MEDS: LACTATED RINGERS 1,000 ML IV SCH (09:13)
[2024-10-19] MEDS: IV FLUID CONTINUATION 1,000 ML IV ONE (09:14)
[2024-10-19] MEDS ORDERED: LIDOCAINE 1% INJ 10MG/ML (20 ML MDV) ONE (09:35)
[2024-10-19] MEDS ORDERED: PROPOFOL 10 MG/ML 20 ML VIAL IV ONE (09:35)
--- NOTE | 2024-10-19 09:54 | P.PCN ---
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 She is also scheduled for a colonoscopy as part of screening for colorectal neoplasia Procedure performed: Esophagogastroduodenoscopy with biopsy Colonoscopy Preoperative diagnosis: Screening for esophageal varices/liver cirrhosis/PBC Screening for colon cancer Anesthesia: MAC Procedure: After informed consent was obtained from the patient was brought into the endoscopy unit and IV sedation was administered by anesthesia under continuous monitoring. Initially upper endoscopy was done. The Olympus GF 160 video endoscope was inserted inserted into the mouth and esophagus intubated without any difficulty and was gradually advanced into the stomach and duodenum and carefully examined. The bulb and second part of the duodenum appeared normal. The scope was then withdrawn into the stomach adequately insufflated with air and upon careful examination the antrum had linear areas of erythema consistent with gastritis and biopsies were done from this area. Mucosa of the d body, cardia and fundus appeared normal. No gastric varices identified. The scope was then withdrawn into the esophagus. Small hiatal hernia noted. The GE junction was located at 40 cm to the incisors. It appeared regular with no erythema erosions or ulcerations. No esophageal varices seen. Rest of the esophagus appeared normal. Patient tolerated the procedure well. At this time the patient continued to remain sedation. Initial digital rectal examination was normal. Olympus CF 160 video colonoscope was then inserted into the rectum and gradually advanced to the cecum without any difficulty. Careful examination was performed as the scope was gradually being withdrawn. The prep was fair. The cecum, ascending colon, transverse colon, descending colon, sigmoid colon and rectum appeared normal. Retroflexion was performed in the rectum and no lesions were noted. Patient tolerated the procedure well. Impression: 1. Upper endoscopy revealed mild antral gastritis and small hiatal hernia. No evidence of gastric or esophageal varices. 2. Colonoscopy was within normal limits with no ulcer colitis or colorectal neoplasia Recommendations: Findings of this examination were discussed with the patient as well as her family. She was advised to follow-up with the biopsy results. Recommend repeat upper endoscopy to screen for esophageal varices in 3 years. Advised to have repeat colonoscopy at age 82.
[2024-10-19 10:13] VITALS: BP 102/61; PULSE 74; RESP 15
== END 2024-10-19 10:33 | disposition home or self-care (01) ==
LOC: ORWHC2ENDO 08:35
PROVIDERS: ATTEND Internal Medicine Gastroenterology
DX: Z12.11 Encounter for screening for malignant neoplasm of colon (principal); K29.50 Unspecified chronic gastritis without bleeding; K44.9 Diaphragmatic hernia without obstruction or gangrene; K74.3 Primary biliary cirrhosis; I10 Essential (primary) hypertension; E78.5 Hyperlipidemia, unspecified; J44.9 Chronic obstructive pulmonary disease, unspecified; E07.9 Disorder of thyroid, unspecified; K21.9 Gastro-esophageal reflux disease without esophagitis; F32.A Depression, unspecified; Z79.82 Long term (current) use of aspirin; Z79.51 Long term (current) use of inhaled steroids; Z88.8 Allergy status to other drugs, medicaments and biological substances; Z98.890 Other specified postprocedural states; Z79.890 Hormone replacement therapy; Z79.899 Other long term (current) drug therapy
CPT/HCPCS: 88305; 43239; J2003; J2704; G0121